=== PATIENT | male | born 1975 | race African-American/Black ===

== ENCOUNTER 2019-10-06 06:39 | Inpatient (IN) | payer OTHER ==
[2019-10-06 07:08] LABS: #Basophils 0.1 thou/uL (0.0-0.2); #Eosinphils 0.1 thou/uL (0.0-0.7); #Lymphocytes 1.6 thou/uL (1.20-3.40); #Monocytes 0.4 thou/uL (0.11-0.59); #Neutrophils 5.8 thou/uL (1.40-6.50); %Basophils 0.8 % (0.0-1.0); %Eosinophils 0.7 % (0.0-10.0); %Lymphocytes 20.5 % (21.0-51.0); %Monocytes 4.6 % (0.0-10.0); %Neutrophils 73.5 % (42.0-75.0); Hemoglobin 13.8 g/dL (14.0-18.0); Mean Corpuscular HGB CONC 35.5 g/dL (32.0-36.0); Mean Platelet Volume 7.3 fL (7.4-10.4); Platelet Count 317 thou/uL (130-400); RBC Distribution Width 12.3 % (11.5-14.5); Red Blood Cell (RBC) Count 4.31 mill/uL (4.70-6.10); White Blood Cell (WBC) Count 7.9 thou/uL (4.8-10.8)
[2019-10-06 07:19] LABS: ALT (SGPT) 26 U/L (8-55); AST (SGOT) 16 U/L (5-34); Albumin 4.1 g/dL (3.5-5.0); Alkaline Phosphatase 69 U/L (40-110); Anion Gap 14 mmol/L (10-20); BUN (Urea Nitrogen) 12 mg/dL (8.9-20.6); Bilirubin, Total 0.3 mg/dL (0.2-1.2); CK (CPK) 143 U/L (30-200); Calc. Creatinine Clearance 0 mL/min (70-130); Calcium 9.2 mg/dL (7.8-10.44); Carbon Dioxide 26 mmol/L (22-29); Chloride 105 mmol/L (98-107); Estimated GFR-MDRD Greater than 90; Globulin 3.4 g/dL (2.4-3.5); Glucose 94 mg/dL (70-105); Lipase 19 U/L (8-78); Potassium 3.9 mmol/L (3.5-5.1); Protein, Total 7.5 g/dL (6.0-8.3); Sodium 141 mmol/L (136-145)
[2019-10-06] MEDS ORDERED: Aspirin Chewable 81 MG TAB ONE (12:06)
[2019-10-06] MEDS ORDERED: Nitroglycerin 2% Ointment 1 INCH/1 GM Packet ONE (12:06)
[2019-10-06] MEDS ORDERED: Albuterol Sulfate 1.25 MG/3 ML NEB NEB PRN (13:05)
[2019-10-06 13:14] LABS: Troponin I Less than 0.010 ng/mL (< 0.028)
[2019-10-06] MEDS ORDERED: Metoprolol Tartrate 50 MG TAB PO SCH (13:15)
[2019-10-06 13:44] VITALS: BMI 27.1
--- NOTE | 2019-10-06 13:52 | HP ---
CHIEF COMPLAINT: Chest pain. 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 The patient reports onset was 7 p.m. last night, lasted until about 10 p.m., describes it as intermittent, lasting 10 to 15 minutes with a few different episodes. He reports the pain is sharp, throbbing, located on the left side of his chest with tingling in his arms. He reports from 10 until 5:15 am today, he did not have any further pain. However, this morning at 5:15, he picked up approximately 30-pound box with return of chest pain that has since been constant. He again describes it as throbbing with tingling in his arms. At the facility, he was given a nitroglycerin and an 81 mg aspirin, and he was sent to this facility for evaluation. he denies any improvement in symptoms. The patient reports the pain earlier was 8/10 in severity, currently it is 3/10 , he did have some associated shortness of breath. He denies any nausea, vomiting, fevers, or chills. He states that the pain is similar to the prior history in March when he was seen at [facility] and diagnosed with three arteries on the left side. He reports that surgery was proposed and he declined it twice. However, he has since changed his mind and is awaiting a scheduling date. He denies any interval return of chest pain until last night. In the emergency room here, the patient treated with nitroglycerin paste 1 inch , and Hospitalist called for admission. ALLERGIES: 1. SULFA. 2. IBUPROFEN. 3. AMOXICILLIN. 4. EGGS. 5. NAPROSYN. CURRENT MEDICATIONS: Reconciled with the list provided by the facility. 1. Amlodipine 10 mg daily. 2. Aspirin 81 mg daily. 3. Metoprolol 100 mg b.i.d. 4. Omeprazole 20 mg daily. 5. ProAir 2 puffs 4 times a day as needed. 6. Terazosin 10 mg in the evening. 7. Body lotion daily. PAST MEDICAL HISTORY: 1. Hypertension. 2. Lung disease, unknown type, he carries albuterol. 3. GERD. 4. Coronary artery anomaly as described above, awaiting CABG. 5. Tooth pain, awaiting extraction which he states is deferred until his heart surgery is complete. PAST SURGICAL HISTORY: Denies. SOCIAL HISTORY: He is currently in a correctional facility, he denies alcohol or tobacco. He is a full code, and his mom, Lorri Calderon is his surrogate decision maker. FAMILY HISTORY: Denies any coronary disease. REVIEW OF SYSTEMS: Negative for fevers, chills, nausea, vomiting, positive for shortness of breath this morning, headache, and tooth pain. He is awaiting oral surgery after he has heart surgery. All remaining review of systems are reviewed and negative. PHYSICAL EXAMINATION: VITAL SIGNS: Blood pressure is 113/71, pulse 89, respirations 20, temperature 97.8, saturations 99% on room air. GENERAL: Awake, alert, responsive, in no apparent distress. Able to speak in full sentences. HEENT: His pupils are equal and round. Oral mucosa is pink and moist. NECK: Supple, nontender. LYMPHATICS: No palpable cervical or supraclavicular lymphadenopathy. LUNGS: Clear to auscultation bilateral. No audible wheezing, rhonchi, or rales. HEART: Normal S1, S2. Regular rate and rhythm. No significant murmur. ABDOMEN: Soft, present bowel sounds. Nontender. Nondistended. EXTREMITIES: No clubbing, cyanosis, or edema. SKIN: No visible rashes. NEUROLOGIC: No focal deficits. PSYCHIATRIC: Appears euthymic. LABORATORY DATA: Reviewed. CBC: 7.9, 13.8, 38.8, 317. Renal panel 141, 3.9, 105, 26, 12, 1.06, 94. T bilirubin 0.3, AST 16, ALT 26, alkaline phosphatase 69, total protein 7.5, albumin 4.1. EKG is personally reviewed, sinus rhythm, normal axis, LVH, early repolarization , no ST changes. IMPRESSION: 1. Chest pain in a patient who reports awaiting CABG secondary to diagnosis of a coronary artery abnormality. 2. Anemia, mild. 3. Hypertension, appears controlled. 4. Gastroesophageal reflux disease. 5. Lung disease, uncharacterized by patient, no signs of an acute exacerbation. PLAN: 1. Observation status in the hospital. 2. Rule out with a series of troponins. 3. Telemetry monitoring. We will order an echocardiogram to evaluate for any acute issues. Check chest xray. 4. Continuing the nitroglycerin paste, aspirin, beta-sandy. We will order his usual amlodipine with hold parameters as I anticipate his blood pressure will be lower with the nitroglycerin paste. 5. Continuing his omeprazole and as needed albuterol. 6. Heart healthy diet. 7. Anticipate discharge if echocardiogram is normal, troponins are negative and telemetry is uneventful, the patient can be discharged with close follow-up with [facility] for the reported planned CABG. 8. DVT prophylaxis. He is ambulatory. 9. GI prophylaxis not indicated. He is on a PPI and I will continue that. 10. Code status is full. 11. The patient is at high risk given age, comorbidities, and current presentation. 12. Reviewed the plan of care with the patient. No questions or further needs at the end of evaluation. Job ID: [id number] MTDD
--- NOTE | 2019-10-06 15:53 | RAD ---
PA AND LATERAL CHEST: HISTORY: Chest pain. FINDINGS: Heart size and mediastinum are within normal limits. The lungs are clear of infiltrates. No bony find ings. IMPRESSION: No active intrathoracic disease. POS: [facility]
[2019-10-06] MEDS: Nitroglycerin 2% Ointment 1 INCH/1 GM Packet TOP SCH ×2 (15:58→21:08)
[2019-10-06 17:16] LABS: Troponin I Less than 0.010 ng/mL (< 0.028)
[2019-10-06] MEDS: Metoprolol Tartrate 100 MG TAB PO SCH (21:08)
[2019-10-07] MEDS: Acetaminophen 325 MG TAB PO PRN ×2 (03:28→20:03)
[2019-10-07] MEDS ORDERED: Morphine 2 MG/ML SYRINGE SLOW IVP SCH (05:00)
[2019-10-07 05:33] LABS: Anion Gap 14 mmol/L (10-20); BUN (Urea Nitrogen) 12 mg/dL (8.9-20.6); BUN/Creatinine Ratio 12.12; Calc. Creatinine Clearance 118 mL/min (70-130); Calcium 9.3 mg/dL (7.8-10.44); Carbon Dioxide 23 mmol/L (22-29); Chloride 108 mmol/L (98-107); Estimated GFR-MDRD Greater than 90; Glucose 96 mg/dL (70-105); Phosphorus 3.3 mg/dL (2.3-4.7); Potassium 4.5 mmol/L (3.5-5.1); Sodium 140 mmol/L (136-145)
[2019-10-07 05:41] LABS: Eosinophils 2 % (0-10); Lymphocytes 30 % (21-51); MDiff Complete? YES; Mean Corpuscular Hemoglobin 29.8 pg (27.0-31.0); Mean Corpuscular Volume 90.4 fL (78.0-98.0); Mean Platelet Volume 7.1 fL (7.4-10.4); Monocytes 7 % (0-10); Neutrophil 61 % (42-75); Platelet Count 373 thou/uL (130-400); RBC Distribution Width 12.6 % (11.5-14.5); White Blood Cell (WBC) Count 7.1 thou/uL (4.8-10.8)
[2019-10-07] MEDS: Nitroglycerin 2% Ointment 1 INCH/1 GM Packet TOP SCH ×3 (06:00→21:55)
[2019-10-07] MEDS: Metoprolol Tartrate 100 MG TAB PO SCH ×2 (08:46→20:03)
[2019-10-07] MEDS: Amlodipine 10 MG TAB PO SCH (08:46)
[2019-10-07] MEDS: Aspirin 325 mg Enteric Coated Tablet PO SCH (08:46)
--- NOTE | 2019-10-07 17:40 | PDOC.HOSPP ---
- Subjective Encounter Date: 10/07/19 Encounter Time: 11:30 Subjective: The patient continues to have some left sided chest pain, states it is dull, non -burning. No shortness of breath. HE says his chest pain is worst with exertion. THe patient is asking when he will have his CABG and was told that it needed to be done [facility] so that he can have oral surgery done. Transfer initiated to [facility], no bed available today - Objective Vital Signs & Weight: Vital Signs (12 hours) Temp Pulse Resp BP BP Pulse Ox 10/07/19 15:20 97.8 F 58 L 16 102/59 L 98 10/07/19 11:20 97.7 F 65 15 118/71 99 10/07/19 08:46 60 122/73 10/07/19 08:09 97.8 F 60 16 122/73 99 10/07/19 06:03 58 L 121/74 98 Weight Weight 194 lb 12.8 oz I&O: 10/06/19 10/07/19 10/08/19 06:59 06:59 06:59 Intake Total 960 Balance 960 Result Diagrams: 10/07/19 04:48 10/07/19 04:48 Hospitalist ROS - Review of Systems Constitutional: denies: fever, chills Respiratory: denies: cough, dry - Medication Medications: Active Medications Generic Name Dose Route Start Last Admin Trade Name Freq PRN Reason Stop Dose Admin Acetaminophen 650 mg 10/06/19 13:02 10/07/19 03:28 Tylenol PO 650 mg Q6H PRN Administration Headache/Fever/Mild Pain (1-3) Amlodipine Besylate 10 mg 10/07/19 09:00 10/07/19 08:46 Norvasc PO 10 mg DAILY FARNAZ Administration Aspirin 325 mg 10/07/19 09:00 10/07/19 08:46 Ecotrin PO 325 mg DAILY FARNAZ Administration Metoprolol Tartrate 100 mg 10/06/19 21:00 10/07/19 08:46 Lopressor PO 100 mg BID FARNAZ Administration Nitroglycerin 0.5 inch 10/06/19 14:00 10/07/19 13:42 Nitro-Bid 2% Ointment TOP 0.5 inch Q8HR FARNAZ Administration Pantoprazole Sodium 40 mg 10/07/19 09:00 10/07/19 08:46 Protonix PO 40 mg DAILY FARNAZ Administration - Exam General Appearance: NAD, awake alert Eye: PERRL, anicteric sclera ENT: normocephalic atraumatic, no oropharyngeal lesions Neck: supple, symmetric, no JVD, no thyromegaly Heart: RRR, no murmur, no gallops, no rubs Respiratory: CTAB, no wheezes, no rales, no ronchi Gastrointestinal: soft, non-tender, non-distended, normal bowel sounds Extremities: no cyanosis, no clubbing, no edema Skin: normal turgor, no lesions, no rashes Neurological: cranial nerve grossly intact Hosp A/P - Plan ECHO: EF 55-60% THis is a 44 year old male with history of anomalous coronary artery who presented with chest pain Chest pain - possibly secondary to anomalous coronary artery - EKG shows normal sinus rhythm, early repolarization. Trop negative times three - continue aspirin 325, nitropaste, metoprolol - awaiting transfer to [facility] and records from there as well GERD - continue PPI Hypertension - amlodipine and metoprolol BPH - terazosin Code status: full code
[2019-10-08] MEDS: Nitroglycerin 2% Ointment 1 INCH/1 GM Packet TOP SCH ×3 (05:48→21:57)
[2019-10-08] MEDS: Amlodipine 10 MG TAB PO SCH (08:24)
[2019-10-08] MEDS: Metoprolol Tartrate 100 MG TAB PO SCH ×2 (08:24→21:57)
[2019-10-08] MEDS: Aspirin 325 mg Enteric Coated Tablet PO SCH (08:41)
[2019-10-08] MEDS: Acetaminophen 325 MG TAB PO PRN (13:46)
--- NOTE | 2019-10-08 16:57 | PDOC.HOSPP ---
- Subjective Encounter Date: 10/08/19 Encounter Time: 11:45 Subjective: patient denies chest pain . Requested to obtain records from [facility] through the transfer center again . Called myself and no answer . called the [facility] physician solution engineer and they have no cardiology notes available. patient states he was initially told to get CABG sergio but he declined and now he is agreeable to getting surgery . Cards here recommending waiting for records - Objective Vital Signs & Weight: Vital Signs (12 hours) Temp Pulse Resp BP Pulse Ox 10/08/19 15:58 98.4 F 73 14 125/78 98 10/08/19 11:38 97.9 F 67 18 108/77 97 10/08/19 11:08 97 10/08/19 08:24 69 10/08/19 07:25 98.0 F 69 18 103/55 L 97 Weight Weight 194 lb 12.8 oz I&O: 10/07/19 10/08/19 10/09/19 06:59 06:59 06:59 Intake Total 960 1020 Balance 960 1020 Result Diagrams: 10/07/19 04:48 10/07/19 04:48 Hospitalist ROS - Review of Systems Constitutional: reports: fever, chills Respiratory: reports: cough - Medication Medications: Active Medications Generic Name Dose Route Start Last Admin Trade Name Freq PRN Reason Stop Dose Admin Acetaminophen 650 mg 10/06/19 13:02 10/08/19 13:46 Tylenol PO 650 mg Q6H PRN Administration Headache/Fever/Mild Pain (1-3) Amlodipine Besylate 10 mg 10/07/19 09:00 10/08/19 08:24 Norvasc PO Not Given DAILY [facility] Aspirin 325 mg 10/07/19 09:00 10/08/19 08:41 Ecotrin PO 325 mg DAILY FARNAZ Administration Metoprolol Tartrate 100 mg 10/06/19 21:00 10/08/19 08:24 Lopressor PO Not Given BID FARNAZ Nitroglycerin 0.5 inch 10/06/19 14:00 10/08/19 13:45 Nitro-Bid 2% Ointment TOP 0.5 inch Q8HR FARNAZ Administration Pantoprazole Sodium 40 mg 10/07/19 09:00 10/08/19 08:41 Protonix PO Not Given DAILY FARNAZ - Exam General Appearance: NAD, awake alert Eye: PERRL, anicteric sclera Heart: RRR, no murmur, no gallops, no rubs Respiratory: CTAB, no wheezes, no rales, no ronchi Gastrointestinal: soft, non-tender, non-distended, normal bowel sounds Extremities: no cyanosis, no clubbing, no edema Hosp A/P - Plan ECHO: EF 55-60% THis is a 44 year old male with history of anomalous coronary artery who presented with chest pain Chest pain - possibly secondary to anomalous coronary artery - EKG shows normal sinus rhythm, early repolarization. Trop negative times three - continue aspirin 325, nitropaste, metoprolol - awaiting transfer to [facility] and records from there as well GERD - continue PPI Hypertension - amlodipine and metoprolol BPH - terazosin Code status: full code
[2019-10-09] MEDS: Nitroglycerin 2% Ointment 1 INCH/1 GM Packet TOP SCH ×2 (05:28→15:47)
[2019-10-09] MEDS ORDERED: Atorvastatin Calcium 40 MG TAB PO SCH (09:00)
[2019-10-09] MEDS: Amlodipine 10 MG TAB PO SCH (09:01)
[2019-10-09] MEDS: Metoprolol Tartrate 100 MG TAB PO SCH (09:02)
[2019-10-09] MEDS: Aspirin 325 mg Enteric Coated Tablet PO SCH (09:02)
--- NOTE | 2019-10-09 10:02 | PDOC.HOSPP ---
- Subjective Encounter Date: 10/09/19 Encounter Time: 10:00 Subjective: Records received from [facility]. 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 DC summary from 03/2019 shows patient was originally scheduled for CABG 03/2019 but declined. He is now interested in getting it done and wants to do it [facility]. HE wants to see if a surgeon can do it at this hospital. The patient has no chest pain today, but had one episode of left sided chest pain last night that spontaneously resolved - Objective Vital Signs & Weight: Vital Signs (12 hours) Temp Pulse Resp BP Pulse Ox 10/09/19 09:01 65 10/09/19 07:50 97.7 F 65 12 124/76 100 10/09/19 04:41 97.8 F 64 18 117/77 99 10/08/19 23:25 97.4 F L 73 16 106/68 99 Weight Weight 197 lb I&O: 10/08/19 10/09/19 10/10/19 06:59 06:59 06:59 Intake Total 1020 720 Output Total 825 Balance 1020 -105 Result Diagrams: 10/07/19 04:48 10/07/19 04:48 Hospitalist ROS - Review of Systems Constitutional: denies: fever, chills ENT: denies: ear pain - Medication Medications: Active Medications Generic Name Dose Route Start Last Admin Trade Name Freq PRN Reason Stop Dose Admin Acetaminophen 650 mg 10/06/19 13:02 10/08/19 13:46 Tylenol PO 650 mg Q6H PRN Administration Headache/Fever/Mild Pain (1-3) Amlodipine Besylate 10 mg 10/07/19 09:00 10/09/19 09:01 Norvasc PO Not Given DAILY [facility] Aspirin 325 mg 10/07/19 09:00 10/09/19 09:02 Ecotrin PO 325 mg DAILY FARNAZ Administration Atorvastatin Calcium 40 mg 10/09/19 09:00 10/09/19 09:02 Lipitor PO 40 mg QAM FARNAZ Administration Metoprolol Tartrate 100 mg 10/06/19 21:00 10/09/19 09:02 Lopressor PO 100 mg BID FARNAZ Administration Nitroglycerin 0.5 inch 10/06/19 14:00 10/09/19 05:28 Nitro-Bid 2% Ointment TOP 0.5 inch Q8HR FARNAZ Administration Pantoprazole Sodium 40 mg 10/07/19 09:00 10/09/19 09:02 Protonix PO Not Given DAILY FARNAZ - Exam General Appearance: NAD, awake alert Eye: PERRL, anicteric sclera ENT: normocephalic atraumatic, no oropharyngeal lesions Neck: supple, no JVD Heart: RRR, no murmur, no gallops, no rubs, normal peripheral pulses Respiratory: CTAB, no wheezes, no rales, no ronchi Gastrointestinal: soft, non-tender, non-distended Extremities: no cyanosis, no clubbing, no edema Skin: normal turgor, no lesions, no rashes Neurological: cranial nerve grossly intact, normal sensation to touch, no focal deficits, no new deficit Hosp A/P - Plan ECHO: EF 55-60% THis is a 44 year old male with history of anomalous coronary artery who presented with chest pain Chest pain - from secondary to anomalous coronary artery - hospitalization from [facility] reviewed, patient was supposed to get CABG done for right anomalous coronary artery, however patient declined - will place cardiothoracic surgery consult since patient is interested in getting it done now - EKG shows normal sinus rhythm, early repolarization. Trop negative times three - continue aspirin 325, nitropaste, metoprolol - no beds at [facility] so far GERD - continue PPI Hypertension - amlodipine and metoprolol BPH - terazosin Code status: full code
--- NOTE | 2019-10-09 13:10 | DIS ---
DATE OF ADMISSION: 10/06/2019 DATE OF DISCHARGE: 10/09/2019 BRIEF HISTORY OF PRESENT ILLNESS: This is a 44-year-old male with a past medical history of hypertension, nonspecific lung disease, GERD, anomalous coronary artery, who presented to the emergency room with chest pain. The patient had reported chest pain that had started acutely at 7 p.m., that had lasted for about 3 hours. He reported the pain was on his left side, sharp and throbbing and radiating to his left arm. The patient reported that he did have some chest pain that was worse with exertion. He was given aspirin and nitroglycerin with no improvement in his symptoms. The patient was recently hospitalized at [facility] in March of 2019. The patient at that time was told that he had an anomalous coronary artery and a CABG was recommended. At the time, the patient was not interested and declined; however, currently the patient is interested in getting a CABG. He also reports needing oral surgery and it won't be performed unless his heart surgery is taken care of per patient. The patient was admitted here, however, because [facility] had no beds available. HOSPITAL COURSE: 1. Chest pain secondary to anomalous coronary artery : The patient had an EKG, which showed normal sinus rhythm with early repolarization abnormalities. CBC and BMP were unremarkable. Troponin-I was negative x3. Chest X ray was normal. Echo was done on the , which showed an EF of 55% to 60% with mild MR, mild TR. No wall motion abnormalities. The patient was started on aspirin 325 mg, atorvastatin 40 mg, metoprolol 100 b.i.d., Protonix 40 mg daily , and nitroglycerin 0.5 inch topical q.8 hours. Following day, the patient had no recurrence of his chest pain. However, last night, he did have 1 episode of chest pain that lasted for 15 minutes and spontaneously resolved. He has no chest pain today. Transfer request was sent to [facility] due to continuity of care for receiving CABG there. 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 Report was showed to a hand coke drawer here and a cardiovascular surgeon here, who did not recommend any intervention. However today, I received a call from [facility] that they have accepted the patient for transfer for further evaluation of a possible CABG by cardiovascular surgeon, who had seen him there. The patient will be discharged for further workup. 2. Hypertension: Continue metoprolol 100 mg p.o. b.i.d., amlodipine 10 mg p.o. daily, nitroglycerin paste. 3. GERD: Continue Protonix. 4. Hyperlipidemia: Continue atorvastatin. DISCHARGE PHYSICAL EXAMINATION: VITAL SIGNS: Temperature 98.2, heart rate 61, respiratory rate 20, O2 saturations 99% on room air, blood pressure 129/79. GENERAL: The patient is alert, awake, and oriented x3. CVS: Regular rate and rhythm with no murmurs, rubs, or gallops. LUNGS: Clear to auscultation bilaterally. ABDOMEN: Positive bowel sounds. Soft, nontender, nondistended. EXTREMITIES: No edema. PERTINENT LABORATORY DATA: CBC 10/07: Unremarkable. BMP 10/07: Unremarkable except for chloride of 108. Troponin-I: Less than 0.010 x3. LFT 10/06: AST 16, ALT 26. ALP 69. Lipase: 19. PERTINENT IMAGING STUDIES: Chest x-ray on 10/06 :shows no acute disease. Echocardiogram on 10/06 : shows an EF of 55% to 60%, mild MR, mild TR. DISCHARGE INSTRUCTIONS: The patient will be transferred to [facility] for further evaluation of possible CABG. CURRENT INPATIENT MEDICATIONS: 1. Nitroglycerin 0.5 inch topical q.8 hours. 2. Amlodipine 10 mg p.o. daily. 3. Aspirin 325 mg p.o. daily. 4. Atorvastatin 40 mg p.o. q.a.m. 5. Metoprolol 100 mg p.o. b.i.d. 6. Protonix 40 mg p.o. daily. 7. Albuterol sulfate 1.25 mg neb q.4 hours p.r.n. 8. Tylenol 650 mg p.o. q.6 hours p.r.n. Job ID: [id number] [facility]
[2019-10-09 15:04] VITALS: BP 141/88; TEMP 98.6
== END 2019-10-09 17:50 | disposition short-term general hospital (02) | DRG 307 ==
LOC: EEVIPCON 06:39 → ERS 06:39 → 2SW 13:26 → OBSVTOIN 13:26
PROVIDERS: ADMIT Family Medicine; ATTEND Family Medicine
DX: Q24.5 Malformation of coronary vessels (principal); I10 Essential (primary) hypertension; K21.9 Gastro-esophageal reflux disease without esophagitis; D64.9 Anemia, unspecified; N40.0 Benign prostatic hyperplasia without lower urinary tract symptoms; Z88.2 Allergy status to sulfonamides; Z88.8 Allergy status to other drugs, medicaments and biological substances; Z88.6 Allergy status to analgesic agent; Z88.1 Allergy status to other antibiotic agents; Z91.012 Allergy to eggs; Z79.899 Other long term (current) drug therapy; Z79.82 Long term (current) use of aspirin
CPT/HCPCS: 36415; 71046; 80053; 80069; 82550; 83690; 84484; 85007; 85025; 85027; 93005; 93306; 94760; J2270